=== PATIENT | male | born 1935 | race Caucasian/White ===

== ENCOUNTER 2017-10-07 10:55 | Inpatient (IN) ==
[2017-10-07] MEDS ORDERED: methylPREDNISolone SOD SUC 125 MG/2 ML VIAL IV STA (11:38)
[2017-10-07] MEDS ORDERED: LEVOFLOXACIN INJ 750 MG in PREMIX 1 EACH IV STA (11:38)
[2017-10-07] MEDS ORDERED: AZITHROMYCIN INJ 500 MG in SODIUM CHLORIDE 0.9% 250 ML IV STA (11:48)
[2017-10-07] MEDS ORDERED: ALBUTEROL 2.5 MG/3 ML NEB RESP TX SCH (12:00)
[2017-10-07 13:12] LABS: Basophils # 0.1 10*3/uL (0.0-0.2); Basophils % 0.4 % (0.0-0.8); Eosinophils # 0.4 10*3/uL (0.0-0.87); Eosinophils % 2.8 % (0.00-10.9); Hematocrit 38.5 VOL% (42.0-52.0); Hemoglobin 12.5 GM/DL (14.0-18.0); Immature Granulocytes % 0.4 %; Immature Granulocytes Absolute 0.06 #; Lymphocytes # 3.1 10*3/uL (1.4-4.0); Lymphocytes % 23.1 % (21.2-54.2); Mean Corpuscular HGB Conc 32.5 GM/DL (32-36); Mean Corpuscular Hemoglobin 25 PG (27-34); Mean Corpuscular Volume 77.8 FL (87-102); Mean Platelet Volume 11.4 FL (9.6-12.0); Monocytes % 7.4 % (1.7-12.7); Neutrophils # 8.8 10*3/uL (1.4-7.4); Neutrophils % 65.9 % (38.7-73.9); Platelet Count 273 T/CUMM (130-400); Red Blood Count 4.95 MC/CUMM (3.8-5.5); White Blood Count 13.4 T/CUMM (4-12)
[2017-10-07 13:23] LABS: PT Patient Result 10.9 SECS; Partial Thromboplastin Time 27.3 SECS (0-40)
[2017-10-07] MEDS ORDERED: methylPREDNISolone SOD SUC 125 MG/2 ML VIAL ONE (13:30)
[2017-10-07] MEDS ORDERED: LEVOFLOXACIN INJ 150 ML IV ONE (13:30)
[2017-10-07 13:51] LABS: Alanine Aminotransferase 14 U/L (16-61); Albumin 3.7 G/DL (3.4-5.0); Alkaline Phosphatase 104 U/L (45-117); Aspartate Amino Transferase 11 U/L (0-37); Blood Urea Nitrogen 56 MG/DL (7-18); Glucose 124 MG/DL (74-106); Osmolality,Calculated 289.8 MOS/KG (273-304); Potassium 3.3 MMOL/L (3.5-5.1); Sodium 137 MMOL/L (136-145); Total Protein 7.5 G/DL (6.4-8.3); Troponin I Only < 0.015 NG/ML (0.00-0.045)
[2017-10-07] MEDS ORDERED: POTASSIUM BICARB EFFERVESCENT 25 MEQ TABLET PO ONE ×2 (14:27→15:21)
[2017-10-07] MEDS ORDERED: AZITHROMYCIN 500 MG VIAL IV ONE (14:45)
[2017-10-07] MEDS ORDERED: ALBUTEROL/IPRATROPIUM 3 ML NEB RESP TX PRN (16:08)
[2017-10-07] MEDS ORDERED: ONDANSETRON 4 MG/2 ML VIAL IV PRN (16:08)
[2017-10-07] MEDS ORDERED: methylPREDNISolone SOD SUC 125 MG/2 ML VIAL IV SCH (16:30)
[2017-10-07] MEDS: AMPICILLIN/SULBACTAM 3,000 MG in SODIUM CHLORIDE 0.9% 100 ML IV SCH ×2 (19:36→23:34)
[2017-10-07 19:56] LABS: Apearance,Urine CLEAR (Clear); Bilirubin,Urine Negative (Negative); Blood, Urine Negative (Negative); Glucose,Urine (UA) Negative (Negative); Hyaline Casts,Urine 6 /LPF (0-3); Ketones,Urine Negative (Negative); Mucus,Urine Occasional /LPF (Occasional); Nitrite,Urine Negative (Negative); Protein,Urine Negative; RBC,Urine 1 /HPF (0-4); Urine Color Straw (Yellow); Urine Specific Gravity 1.008 (1.001-1.035); Urine Urobilinogen < 2.0 EU/DL (0.2-1.0); WBC,Urine 1 /HPF (0-6)
[2017-10-07] MEDS ORDERED: ENOXAPARIN 30 MG/0.3 ML SYRINGE SUBCUT SCH (21:00)
[2017-10-07] MEDS ORDERED: GABAPENTIN 100 MG CAPSULE PO SCH (21:00)
[2017-10-07] MEDS: methylPREDNISolone SOD SUC 40 MG/1 ML VIAL IV SCH (21:20)
[2017-10-07] MEDS: GABAPENTIN 100 MG CAPSULE PO SCH (21:20)
[2017-10-07] MEDS: TAMSULOSIN 0.4 MG CAPSULE PO SCH (21:20)
[2017-10-07] MEDS: BRIMONIDINE/TIMOLOL OPH SOLN 5 ML BOTTLE BOTH EYES SCH (21:21)
[2017-10-07] MEDS: MELATONIN 3 MG TABLET PO SCH (21:21)
[2017-10-07] MEDS: PANTOPRAZOLE 40 MG TABLET PO SCH (21:21)
[2017-10-07] MEDS: CITALOPRAM 20 MG TABLET PO SCH (21:24)
[2017-10-08 06:19] LABS: Basophils % 0.1 % (0.0-0.8); Hematocrit 36.9 VOL% (42.0-52.0); Immature Granulocytes % 0.6 %; Immature Granulocytes Absolute 0.05 #; Lymphocytes # 0.9 10*3/uL (1.4-4.0); Lymphocytes % 10.1 % (21.2-54.2); Mean Corpuscular HGB Conc 32.5 GM/DL (32-36); Mean Corpuscular Hemoglobin 25 PG (27-34); Mean Corpuscular Volume 77.5 FL (87-102); Mean Platelet Volume 11.3 FL (9.6-12.0); Monocytes # 0.2 10*3/uL (0.11-0.8); Monocytes % 2.6 % (1.7-12.7); Neutrophils # 7.6 10*3/uL (1.4-7.4); Neutrophils % 86.6 % (38.7-73.9); Platelet Count 286 T/CUMM (130-400); Red Blood Count 4.76 MC/CUMM (3.8-5.5); Red Cell Distribution Width 15.9 % (9.3-17.3); White Blood Count 8.8 T/CUMM (4-12)
[2017-10-08] MEDS: AMPICILLIN/SULBACTAM 3,000 MG in SODIUM CHLORIDE 0.9% 100 ML IV SCH ×3 (06:22→21:05)
[2017-10-08] MEDS: methylPREDNISolone SOD SUC 40 MG/1 ML VIAL IV SCH (06:22)
[2017-10-08 06:39] LABS: Calcium 9.1 MG/DL (8.5-10.1); Osmolality,Calculated 291.8 MOS/KG (273-304); Potassium 4.7 MMOL/L (3.5-5.1)
[2017-10-08] MEDS: ASPIRIN 325 MG TABLET PO SCH (08:17)
[2017-10-08] MEDS: BRIMONIDINE/TIMOLOL OPH SOLN 5 ML BOTTLE BOTH EYES SCH ×2 (08:18→20:58)
[2017-10-08] MEDS: POTASSIUM CHLORIDE 20 MEQ TABLET PO SCH (08:19)
[2017-10-08] MEDS: PANTOPRAZOLE 40 MG TABLET PO SCH ×2 (08:19→21:02)
[2017-10-08] MEDS: METOPROLOL SUCCINATE XL 50 MG TABLET PO SCH (08:20)
[2017-10-08] MEDS: FLUTICASONE 50 MCG NASAL SPRAY 16 GM BOTTLE BOTH NARES SCH (08:27)
[2017-10-08] MEDS: DOCUSATE/SENNA 50-8.6 MG TABLET PO SCH (08:29)
[2017-10-08] MEDS ORDERED: metOLazone 5 MG TABLET PO SCH (09:00)
[2017-10-08] MEDS ORDERED: FUROSEMIDE 40 MG/4 ML VIAL IV SCH (09:00)
[2017-10-08] MEDS ORDERED: PANTOPRAZOLE 40 MG TABLET PO SCH (09:00)
[2017-10-08] MEDS ORDERED: ACETAMINOPHEN 325 MG TABLET PO PRN (15:59)
[2017-10-08] MEDS: ACETAMINOPHEN 325 MG TABLET PO PRN ×2 (16:08→21:03)
[2017-10-08] MEDS: MELATONIN 3 MG TABLET PO SCH (21:01)
[2017-10-08] MEDS: TAMSULOSIN 0.4 MG CAPSULE PO SCH (21:02)
[2017-10-08] MEDS: CITALOPRAM 20 MG TABLET PO SCH (21:02)
[2017-10-08] MEDS: ENOXAPARIN 40 MG/0.4 ML SYRINGE SUBCUT SCH (21:04)
[2017-10-08] MEDS: GABAPENTIN 100 MG CAPSULE PO SCH (21:04)
[2017-10-08] MEDS: CLORAZEPATE 3.75 MG TABLET PO PRN (23:17)
[2017-10-09] MEDS: ZALEPLON 5 MG CAPSULE PO PRN ×2 (00:54→21:15)
[2017-10-09] MEDS: AMPICILLIN/SULBACTAM 3,000 MG in SODIUM CHLORIDE 0.9% 100 ML IV SCH ×4 (05:26→21:25)
[2017-10-09 05:34] LABS: Basophils % 0.1 % (0.0-0.8); Eosinophils % 0.2 % (0.00-10.9); Hematocrit 34.4 VOL% (42.0-52.0); Hemoglobin 11.2 GM/DL (14.0-18.0); Immature Granulocytes % 0.5 %; Immature Granulocytes Absolute 0.09 #; Lymphocytes # 2.1 10*3/uL (1.4-4.0); Lymphocytes % 12.6 % (21.2-54.2); Mean Corpuscular HGB Conc 32.6 GM/DL (32-36); Mean Corpuscular Hemoglobin 26 PG (27-34); Mean Corpuscular Volume 78.9 FL (87-102); Mean Platelet Volume 11.8 FL (9.6-12.0); Monocytes # 1.1 10*3/uL (0.11-0.8); Monocytes % 6.8 % (1.7-12.7); Neutrophils # 13.2 10*3/uL (1.4-7.4); Neutrophils % 79.8 % (38.7-73.9); Platelet Count 295 T/CUMM (130-400); Red Blood Count 4.36 MC/CUMM (3.8-5.5); Red Cell Distribution Width 16.2 % (9.3-17.3); White Blood Count 16.5 T/CUMM (4-12)
[2017-10-09 06:06] LABS: Calcium 8.9 MG/DL (8.5-10.1); Osmolality,Calculated 292.7 MOS/KG (273-304); Potassium 4.2 MMOL/L (3.5-5.1)
[2017-10-09] MEDS: BRIMONIDINE/TIMOLOL OPH SOLN 5 ML BOTTLE BOTH EYES SCH ×2 (08:53→21:31)
[2017-10-09] MEDS: ASPIRIN 325 MG TABLET PO SCH (08:53)
[2017-10-09] MEDS: FLUTICASONE 50 MCG NASAL SPRAY 16 GM BOTTLE BOTH NARES SCH (08:54)
[2017-10-09] MEDS: POTASSIUM CHLORIDE 20 MEQ TABLET PO SCH (08:54)
[2017-10-09] MEDS: PANTOPRAZOLE 40 MG TABLET PO SCH ×2 (08:54→21:15)
[2017-10-09] MEDS: DOCUSATE/SENNA 50-8.6 MG TABLET PO SCH (08:54)
[2017-10-09] MEDS: METOPROLOL SUCCINATE XL 50 MG TABLET PO SCH (08:55)
[2017-10-09] MEDS: ACETAMINOPHEN 325 MG TABLET PO PRN ×2 (13:36→19:38)
[2017-10-09] MEDS: CLORAZEPATE 3.75 MG TABLET PO PRN (19:39)
[2017-10-09] MEDS: GABAPENTIN 100 MG CAPSULE PO SCH (21:14)
[2017-10-09] MEDS: CITALOPRAM 20 MG TABLET PO SCH (21:14)
[2017-10-09] MEDS: TAMSULOSIN 0.4 MG CAPSULE PO SCH (21:14)
[2017-10-09] MEDS: MELATONIN 3 MG TABLET PO SCH (21:15)
[2017-10-09] MEDS: ENOXAPARIN 40 MG/0.4 ML SYRINGE SUBCUT SCH (21:16)
[2017-10-10] MEDS: CLORAZEPATE 3.75 MG TABLET PO PRN (01:51)
[2017-10-10] MEDS: ACETAMINOPHEN 325 MG TABLET PO PRN ×2 (01:52→07:08)
[2017-10-10] MEDS: AMPICILLIN/SULBACTAM 3,000 MG in SODIUM CHLORIDE 0.9% 100 ML IV SCH ×2 (02:01→11:05)
[2017-10-10 04:20] LABS: Basophils % 0.3 % (0.0-0.8); Eosinophils # 0.5 10*3/uL (0.0-0.87); Hematocrit 38.5 VOL% (42.0-52.0); Hemoglobin 12.4 GM/DL (14.0-18.0); Immature Granulocytes % 0.5 %; Immature Granulocytes Absolute 0.06 #; Lymphocytes # 2.4 10*3/uL (1.4-4.0); Mean Corpuscular HGB Conc 32.2 GM/DL (32-36); Mean Corpuscular Hemoglobin 25 PG (27-34); Mean Corpuscular Volume 78.4 FL (87-102); Mean Platelet Volume 11.3 FL (9.6-12.0); Monocytes # 1.2 10*3/uL (0.11-0.8); Monocytes % 9.7 % (1.7-12.7); Neutrophils # 7.8 10*3/uL (1.4-7.4); Neutrophils % 65.5 % (38.7-73.9); Platelet Count 326 T/CUMM (130-400); Red Blood Count 4.91 MC/CUMM (3.8-5.5); Red Cell Distribution Width 15.9 % (9.3-17.3); White Blood Count 11.9 T/CUMM (4-12)
[2017-10-10 04:36] LABS: Calcium 9.4 MG/DL (8.5-10.1); Osmolality,Calculated 286.7 MOS/KG (273-304); Potassium 4.3 MMOL/L (3.5-5.1)
[2017-10-10 07:46] VITALS: BP 144/87
[2017-10-10] MEDS: ASPIRIN 325 MG TABLET PO SCH (09:24)
[2017-10-10] MEDS: PANTOPRAZOLE 40 MG TABLET PO SCH (09:24)
[2017-10-10] MEDS: POTASSIUM CHLORIDE 20 MEQ TABLET PO SCH (09:24)
[2017-10-10] MEDS: METOPROLOL SUCCINATE XL 50 MG TABLET PO SCH (09:24)
[2017-10-10] MEDS: DOCUSATE/SENNA 50-8.6 MG TABLET PO SCH (09:24)
[2017-10-10] MEDS: FLUTICASONE 50 MCG NASAL SPRAY 16 GM BOTTLE BOTH NARES SCH (09:25)
[2017-10-10] MEDS: BRIMONIDINE/TIMOLOL OPH SOLN 5 ML BOTTLE BOTH EYES SCH (09:25)
== END 2017-10-10 11:15 | disposition home health service (06) | DRG 191 ==
LOC: N.ED 10:55 → N.EDINP 14:38 → N.2E 15:30
PROVIDERS: ADMIT Internal Medicine; ATTEND Internal Medicine

== ENCOUNTER 2018-02-11 19:29 | Inpatient (IN) ==
[2018-02-11 20:44] LABS: Basophils # 0.1 10*3/uL (0.0-0.2); Basophils % 0.6 % (0.0-0.8); Eosinophils # 0.4 10*3/uL (0.0-0.87); Eosinophils % 5.5 % (0.00-10.9); Hematocrit 36.3 VOL% (42.0-52.0); Hemoglobin 11.1 GM/DL (14.0-18.0); Immature Granulocytes % 0.4 %; Immature Granulocytes Absolute 0.03 #; Lymphocytes # 2.1 10*3/uL (1.4-4.0); Lymphocytes % 26.5 % (21.2-54.2); Mean Corpuscular HGB Conc 30.6 GM/DL (32-36); Mean Corpuscular Hemoglobin 25 PG (27-34); Mean Corpuscular Volume 80.8 FL (87-102); Mean Platelet Volume 10.9 FL (9.6-12.0); Monocytes # 0.8 10*3/uL (0.11-0.8); Monocytes % 9.6 % (1.7-12.7); Neutrophils # 4.6 10*3/uL (1.4-7.4); Neutrophils % 57.4 % (38.7-73.9); Platelet Count 280 T/CUMM (130-400); Red Blood Count 4.49 MC/CUMM (3.8-5.5); Red Cell Distribution Width 18.3 % (9.3-17.3)
[2018-02-11 20:52] LABS: PT Patient Result 10.8 SECS
[2018-02-11 21:10] LABS: Osmolality,Calculated 286.3 MOS/KG (273-304); Potassium 4.5 MMOL/L (3.5-5.1)
[2018-02-11 21:14] LABS: Troponin I Only < 0.015 NG/ML (0.00-0.045)
[2018-02-11] MEDS ORDERED: ONDANSETRON 4 MG/2 ML VIAL IV PRN (21:27)
[2018-02-11] MEDS ORDERED: DEXTROSE 50% 25 GM/50 ML VIAL IV PRN (21:27)
[2018-02-11] MEDS ORDERED: GLUCAGON 1 MG VIAL IM PRN (21:27)
[2018-02-12 01:19] LABS: Apearance,Urine CLEAR (Clear); Bilirubin,Urine Negative (Negative); Blood, Urine Negative (Negative); Glucose,Urine (UA) Negative (Negative); Ketones,Urine Negative (Negative); Mucus,Urine Occasional /LPF (Occasional); Nitrite,Urine Negative (Negative); Protein,Urine 100 MG/DL; Squamous Epithelial Cell,Urine Occasional /HPF (0-10); Urine Color Yellow (Yellow); Urine Specific Gravity 1.014 (1.001-1.035); Urine Urobilinogen < 2.0 EU/DL (0.2-1.0); WBC,Urine 1 /HPF (0-6)
[2018-02-12 02:45] LABS: Barbiturates Screen,Urine Negative (Negative); Benzodiazepines Screen,Urine Positive (Negative); Cannabinoid Screen,Urine Negative (Negative); Opiate Screen,Urine Negative (Negative); Phencyclidine Screen,Urine Negative (Negative)
[2018-02-12] MEDS: PANTOPRAZOLE 40 MG TABLET PO SCH ×2 (08:58→21:01)
[2018-02-12] MEDS: DOCUSATE SODIUM 100 MG CAPSULE PO SCH (08:58)
[2018-02-12] MEDS ORDERED: DOCUSATE SODIUM 100 MG CAPSULE PO SCH (09:00)
[2018-02-12] MEDS ORDERED: PANTOPRAZOLE 40 MG TABLET PO SCH (09:00)
[2018-02-12] MEDS: METOPROLOL SUCCINATE XL 50 MG TABLET PO SCH (09:46)
[2018-02-12] MEDS: POTASSIUM CHLORIDE 8 MEQ CAPSULE PO SCH (09:46)
[2018-02-12] MEDS: CITALOPRAM 20 MG TABLET PO SCH (09:46)
[2018-02-12] MEDS: BRIMONIDINE/TIMOLOL OPH SOLN 5 ML BOTTLE BOTH EYES SCH ×2 (09:48→21:01)
[2018-02-12] MEDS ORDERED: DOCUSATE/SENNA 50-8.6 MG TABLET PO SCH (10:00)
[2018-02-12] MEDS ORDERED: DOCUSATE/SENNA 50-8.6 MG TABLET PO PRN (10:30)
[2018-02-12] MEDS: ACETAMINOPHEN 325 MG TABLET PO PRN ×3 (11:31→23:46)
[2018-02-12] MEDS ORDERED: TAMSULOSIN 0.4 MG CAPSULE PO SCH (21:00)
[2018-02-12] MEDS ORDERED: CLORAZEPATE 3.75 MG TABLET PO SCH (21:00)
[2018-02-12] MEDS ORDERED: MELATONIN 3 MG TABLET PO SCH (21:00)
[2018-02-12] MEDS ORDERED: GABAPENTIN 100 MG CAPSULE PO SCH (21:00)
[2018-02-13 06:18] LABS: Basophils # 0.1 10*3/uL (0.0-0.2); Basophils % 0.5 % (0.0-0.8); Eosinophils # 0.4 10*3/uL (0.0-0.87); Eosinophils % 3.8 % (0.00-10.9); Hematocrit 35.7 VOL% (42.0-52.0); Immature Granulocytes % 0.5 %; Immature Granulocytes Absolute 0.05 #; Lymphocytes # 2.6 10*3/uL (1.4-4.0); Lymphocytes % 24.1 % (21.2-54.2); Mean Corpuscular HGB Conc 30.8 GM/DL (32-36); Mean Corpuscular Hemoglobin 24 PG (27-34); Mean Corpuscular Volume 78.5 FL (87-102); Mean Platelet Volume 11.2 FL (9.6-12.0); Monocytes # 0.8 10*3/uL (0.11-0.8); Neutrophils % 64.1 % (38.7-73.9); Platelet Count 289 T/CUMM (130-400); Red Blood Count 4.55 MC/CUMM (3.8-5.5); Red Cell Distribution Width 17.9 % (9.3-17.3); White Blood Count 10.9 T/CUMM (4-12)
[2018-02-13 06:55] LABS: Calcium 9.3 MG/DL (8.5-10.1); Osmolality,Calculated 280.5 MOS/KG (273-304); Potassium 4.7 MMOL/L (3.5-5.1)
[2018-02-13] MEDS: ACETAMINOPHEN 325 MG TABLET PO PRN (06:58)
[2018-02-13 07:36] VITALS: BP 162/83
[2018-02-13] MEDS ORDERED: CLOPIDOGREL 75 MG TABLET PO SCH (09:00)
[2018-02-13] MEDS: BRIMONIDINE/TIMOLOL OPH SOLN 5 ML BOTTLE BOTH EYES SCH (09:18)
[2018-02-13] MEDS: PANTOPRAZOLE 40 MG TABLET PO SCH (09:18)
[2018-02-13] MEDS: POTASSIUM CHLORIDE 8 MEQ CAPSULE PO SCH (09:18)
[2018-02-13] MEDS: METOPROLOL SUCCINATE XL 50 MG TABLET PO SCH (09:18)
[2018-02-13] MEDS: CITALOPRAM 20 MG TABLET PO SCH (09:18)
[2018-02-13] MEDS: DOCUSATE SODIUM 100 MG CAPSULE PO SCH (09:18)
== END 2018-02-13 12:40 | disposition home or self-care (01) | DRG 69 ==
LOC: N.ED 19:29 → N.EDINP 21:27 → N.2E 23:48
PROVIDERS: ADMIT Internal Medicine; ATTEND Internal Medicine